=== PATIENT | female | born 1955 | race Caucasian/White ===

== ENCOUNTER 2019-05-14 17:52 | Emergency (ER) | payer OTHER ==
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
[2019-05-14] MEDS ORDERED: KETOROLAC 30 MG/ML INJ ONE (19:25)
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
[2019-05-14 21:45] VITALS: BP 112/59; TEMP 98.5; O2SAT 98
== END 2019-05-14 20:23 | disposition home or self-care (01) ==
LOC: ER 17:52
DX: M54.12 Radiculopathy, cervical region (principal); V43.52XA Car driver injured in collision with other type car in traffic accident, initial encounter; Z88.0 Allergy status to penicillin
CPT/HCPCS: 71045; 72125; 96372; 99283

== ENCOUNTER 2020-12-13 08:26 | Observation (INO) | payer OTHER ==
[2020-12-13 09:14] LABS: Basophils % 0.7 % (0-1.3); Hematocrit 38.1 % (36.0-45.0); Lymphocytes % 28.4 % (15.3-44.8); RBC Red Blood Cell Count 4.29 M/uL (3.86-4.86)
[2020-12-13 09:23] LABS: Albumin 4.1 g/dL (3.4-5.0); Bilirubin Direct 0.1 mg/dL (0-0.2); Bilirubin Total 0.5 mg/dL (0.2-1.0)
[2020-12-13 09:26] LABS: Potassium 2.9 mmol/L (3.5-5.1)
--- NOTE | 2020-12-13 09:37 | RAD REPORT ---
EXAM DESCRIPTION: CT - Stone Protocol - 12/13/2020 9:25 am COMPARISON: None. TECHNIQUE: Axial 5 mm thick images were obtained without oral or IV contrast. The [id number] span s the entirety of the system partially obscuring uppermost abdomen and lung bases. All CT scans are performed using dose optimization technique as appropriate and may include automated exposure control or mA/KV adjustment according to patient size. FINDINGS: 3 millimeter stone in the lower pole the right kidney. No ureteral calculi. No hydronephro sis. No suspicious renal masses. Isodense masses and pyelonephritis are not excluded on a stone ela col CT scan. No urinary bladder suspicious finding. Imaged portions of the liver and spleen show no suspicious findings on non-contrast imaging. No gallb ladder, biliary tree or pancreatic abnormality identified. No significant adrenal finding. No suspicious bowel findings. No hernia, mass or bulky lymphadenopathy noted. No significant bony abnormality. IMPRESSION: No acute findings within the abdomen or pelvis. Nonobstructing stone in the right kidney .
[2020-12-13] MEDS ORDERED: MORPHINE 4 MG/ML SYR ONE (09:53)
[2020-12-13] MEDS ORDERED: ONDANSETRON 4 MG/2 ML VIAL ONE (09:54)
[2020-12-13] MEDS ORDERED: KCL 20 MEQ/100 mL IVPB 20 MEQ/100 ML BAG IV ONE (09:54)
[2020-12-13] MEDS ORDERED: NA CHLORIDE 0.9% 500 ML ONE (09:54)
[2020-12-13] MEDS ORDERED: METHOCARBAMOL 1,000 MG/10 ML VIAL IV ONE (11:34)
[2020-12-13] MEDS ORDERED: NA CHLORIDE 0.9% 100 ML ONE (11:34)
[2020-12-13] MEDS ORDERED: KETOROLAC 30 MG/ML INJ ONE (11:34)
[2020-12-13] MEDS ORDERED: METHYLPREDNISOLONE 125 MG INJ ONE (13:44)
[2020-12-13 14:26] LABS: Urine Blood Negative (Negative); Urine Glucose Negative (Negative); Urine Protein Negative (Negative); Urine Specific Gravity 1.015 (1.005-1.030)
--- NOTE | 2020-12-13 15:11 | RAD REPORT ---
EXAM DESCRIPTION: MRI - Thoracic Spine Wo Contr - 12/13/2020 2:49 pm CLINICAL HISTORY: Left radiculopathy COMPARISON: None. TECHNIQUE: Sagittal T1 weighted, T2 weighted and T2 STIR weighted sequences were obtained. Axial T2 weighted images were obtained through each disc level. FINDINGS: Mild spondylosis involves the thoracic spine mainly consisting of several small bulging di scs. No central spinal stenosis. The neural foramina appear patent. Spinal cord is normal caliber and signal. No significant abnormal signal within the bones IMPRESSION: Mild spondylosis involves the thoracic spine
--- NOTE | 2020-12-13 15:19 | RAD REPORT ---
EXAM DESCRIPTION: MRI - Lumbar Spine Wo Con - 12/13/2020 2:49 pm CLINICAL HISTORY: Left radiculopathy COMPARISON: None. TECHNIQUE: Sagittal T1, T2 and STIR weighted sequences were obtained. Axial T1 and T2 sequences were obtained through the lumbar disc levels. FINDINGS: Mild spondylosis L1-2 Small annular fissure L2-3 with mild disc bulge. Mild ligamentum flavum and facet hypertrophy L3-4. Mild narrowing left neural foramina Slight anterior subluxation L4 on L5. Ligamentum flavum and facet hypertrophy. Moderate right lateral disc herniation narrows the right neural foramina. The right and left lateral aspects of the thecal sac or mildly compressed. Thecal sac measures 7.5 millimeters. Facet hypertrophy L5-S1 results in moderate narrowing of the right neural foramina. No significant abnormal signal within the bones IMPRESSION: Moderate right lateral disc herniation L4-5. Spondylosis L4-5 results in mild to moderate central spinal stenosis
--- OUTSIDE RECORDS SUMMARY | 2020-12-13 15:25 | XMS REPORT | Continuity of Care Document ---
:1955 Author Organization [facility] t Address [address] [place] [address] Care Team Providers Name Role Phone Asked, Pcp Primary Care Physician Unavailable Only, Test Attending Clinician Unavailable Wilton Saucedo MD Attending Clinician Doctor Unassigned, Name Attending Clinician Unavailable Green CREDIT RELATIONSHIP MANAGER Attending Clinician Lab, Fam Pob I Attending Clinician Unavailable Wilton Saucedo MD Admitting Clinician Problems Condition Condition Condition Status Onset Resolution Last Treating Co mments Source Name Details Category Date Date Treatment Clinician Date Cervical Cervical Disease Active [place] radiculopa radiculopa 12-29 Me thodi thy thy 00:00: st 00 Allergies, Adverse Reactions, Alerts Allergy Allergy Status Severity Reaction(s) Onset Inactive Treating Comm ents Source Name Type Date Date Clinician Doxycycl Propensi Active Nausea [place] ine ty to 12-25 and [facility] adverse 00:00: diarrhea st reaction 00 s to drug Penicill Propensi Active Hives, Rash 2015- [place] ty to 02-10 Methodi adverse 00:00: st reaction 00 s to drug Social History Social Habit Start Date Stop Date Quantity Comments Source Tobacco use and 2018-12-31 2018-12-31 Never used [facility] ethodist exposure 00:00:00 00:00:00 Alcohol intake 2018-12-31 2018-12-31 Current drinker [place] [facility] 00:00:00 00:00:00 of alcohol (finding) Sex [birth year] Lucien Rosenberg ethodist 00:00:00 00:00:00 Smoking Status Start Date Stop Date Source Never smoker Lucien Strongis t Medications Ordered Filled Start Stop Current Ordering Indication Dosage Frequency Signature Comments Components Source Medication Medication Date Date Medication? Clinician (SIG) Name Name zolpidem 2019- Yes 5mg QD Take 5 mg [place] (AMBIEN) 5 7-24 by mouth Metho di MG tablet 15:22: nightly. st 41 levothyroxi 2018- Yes 100ug QD Take 100 [place] ne 7-24 mcg by Method[facility] (SYNTHROID, 15:22: mouth st LEVOXYL) 41 every 100 mcg morning. tablet albuterol Yes 2{puff} Inhale 2 H [place] (PROAIR 7-24 puffs as Methodi HFA,PROVENT 15:22: needed for st [place] 41 wheezing. HFA,VENTOLI N HFA) 90 mcg/actuati on inhaler valACYclovi Yes 500mg QD Take 500 [place] (VALTREX) 7-24 mg by Method[facility] 500 MG 15:22: mouth st tablet 41 nightly. sertraline Yes 50mg QD Take 50 mg H j[place] (ZOLOFT) 50 4-10 by mouth Meth scott MG tablet 00:00: every st 00 morning. atorvastati Yes 40mg QD Take 40 mg [place] n (LIPITOR) 3-18 by mouth Meth scott 40 MG 00:00: every st tablet 00 morning. triamterene Yes 1{tbl} QD Take 1 [place] -hydrochlor 7-23 tablet by Met ese dennison 00:00: mouth st (MAXZIDE-25 00 every ) 37.5-25 morning. mg per tablet Procedures This patient has no known procedures. Plan of Care Planned Activity Planned Date Details Comments Source Future Scheduled 2021-01-07 INFLUENZA VACCINE [facility]irto n [facility] Test 00:00:00 [code = INFLUENZA VACCINE] Future Scheduled 2003 BREAST CANCER Lucien Collazo [facility] Test 00:00:00 SCREENING [code = BREAST CANCER SCREENING] Future Scheduled 2003 COLONOSCOPY SCREENING [place] [facility] Test 00:00:00 [code = COLONOSCOPY SCREENING] Future Scheduled 2003 SHINGLES VACCINES (#1) [place] [facility] Test 00:00:00 [code = SHINGLES VACCINES (#1)] Future Scheduled 1971 Hepatitis C screening Humza miller [facility] Test 00:00:00 (procedure) [code = 180469057] Future Scheduled 1965 COVID-19 VACCINE (1) Bobbi marie [facility] Test 00:00:00 [code = COVID-19 VACCINE (1)] Future Scheduled 1959 65+ PNEUMOCOCCAL [facility] Test 00:00:00 VACCINE (1 of 2 - PPSV23) [code = 65+ PNEUMOCOCCAL VACCINE (1 of 2 - PPSV23)] Encounters Start End Encounter Admission Attending Care Care Encounter Source Date/Time Date/Time Type Type Clinicians Facility Department ID 2020-06-27 2020-06-27 Telephone Only, [facility] BETY [id number] 00:00:00 00:00:00 Test GONZALES [id number] [id number] 2020-06-07 2020-06-07 [place] [id number] 07:05:00 08:45:00 Encounter Tamara morris [id number] [place] [id number] [facility] [id number] [place] 071 2020-06-06 2020-06-06 Laboratory Only, [address]840.114 7 [id number] 12:39:17 12:54:17 Only Test Jose Antonio [id number] [place] [id number] [place] [id number] 2020-06-06 2020-06-06 Orders Doctor BETY [id number] 00:00:00 00:00:00 Only Unassigned, GONZALES [id number] [facility] [id number] [id number] 2020-01-17 2020-01-17 [id number] 00:00:00 00:00:00 [facility] [id number] Jose Antonio [id number] Professio [id number] nal [address] 2020-01-16 2020-01-16 Laboratory Lab, Adc [facility] [id number] 12:54:34 13:14:34 Only Fam [facility] [id number] [place] 4.2.7.2.686 Vicki [id number] nal [address] 2020-01-16 2020-01-16 Letter Doctor BETY [id number] 00:00:00 00:00:00 (Out) Unassigned, GONZALES [id number] [facility] [place] [facility] [id number] [id number] Results This patient has no known results.
--- NOTE | 2020-12-13 15:58 | EDPHYS ---
Physician Documentation [facility] Name: Isabelle Pike Age: 65 yrs Sex: Female : 1955 Arrival Date: 12/13/2020 Time: 08:29 Bed 8 Private MD: Pj Abernathy ED Physician Bernardino Alvarez HPI: 12/13 09:44 This 65 yrs old Female presents to ER via Ambulatory with complaints of kdr Abdominal Pain. 09:44 The patient complains of pain in the left mid back. The pain radiates to the left low kdr back and left mid back. Onset: The symptoms/episode began/occurred yesterday. Modifying factors: The symptoms are alleviated by nothing. the symptoms are aggravated by nothing. Severity of pain: At its worst the pain was mild in the emergency department the pain is unchanged. The patient has not recently seen a physician. Historical: - Allergies: 08:34 PENICILLINS; ll1 - PMHx: 08:34 Hypothyroidism; Hypertensive disorder; ll1 - PSHx: 08:34 rotator cuff, back fusion, hernia repair; ll1 - Immunization history:: Flu vaccine is up to date. - Social history:: Smoking status: Patient denies any tobacco usage or history of. ROS: 09:44 Constitutional: Negative for fever, chills, and weight loss, Eyes: Negative for injury, kdr pain, redness, and discharge, Neck: Negative for injury, pain, and swelling, Cardiovascular: Negative for chest pain, palpitations, and edema, Respiratory: Negative for shortness of breath, cough, wheezing, and pleuritic chest pain, Back: Negative for injury and pain, : Negative for injury, bleeding, discharge, and swelling, Skin: Negative for injury, rash, and discoloration, Neuro: Negative for headache, weakness, numbness, tingling, and seizure activity. Psych: Negative for depression, anxiety, suicide ideation, homicidal ideation, and hallucinations, Allergy/Immunology: Negative for hives, rash, and allergies, Endocrine: Negative for neck swelling, polydipsia, polyuria, polyphagia, and marked weight changes, Hematologic/Lymphatic: Negative for swollen nodes, abnormal bleeding, and unusual bruising. 09:44 Abdomen/GI: Positive for abdominal pain, nausea, Negative for diarrhea, constipation, abdominal cramps, black/tarry stool, rectal pain, rectal bleeding, bowel incontinence. Exam: 09:44 Constitutional: This is a well developed, well nourished patient who is awake, alert, kdr and in no acute distress. Head/Face: Normocephalic, atraumatic. Eyes: Pupils equal round and reactive to light, extra-ocular motions intact. Lids and lashes normal. Conjunctiva and sclera are non-icteric and not injected. Cornea within normal limits. Periorbital areas with no swelling, redness, or edema. Neck: Trachea midline, no thyromegaly or masses palpated, and no cervical lymphadenopathy. Supple, full range of motion without nuchal rigidity, or vertebral point tenderness. No Meningismus. Chest/axilla: Normal chest wall appearance and motion. Nontender with no deformity. No lesions are appreciated. Cardiovascular: Regular rate and rhythm with a normal S1 and S2. No gallops, murmurs, or rubs. Normal PMI, no JVD. No pulse deficits. Respiratory: Lungs have equal breath sounds bilaterally, clear to auscultation and percussion. No rales, rhonchi or wheezes noted. No increased work of breathing, no retractions or nasal flaring. Back: No spinal tenderness. No costovertebral tenderness. Full range of motion. Skin: Warm, dry with normal turgor. Normal color with no rashes, no lesions, and no evidence of cellulitis. MS/ Extremity: Pulses equal, no cyanosis. Neurovascular intact. Full, normal range of motion. Neuro: Awake and alert, GCS 15, oriented to person, place, time, and situation. Cranial nerves II-XII grossly intact. Motor strength 5/5 in all extremities. Sensory grossly intact. Cerebellar exam normal. Normal gait. Psych: Awake, alert, with orientation to person, place and time. Behavior, mood, and affect are within normal limits. 09:44 Abdomen/GI: Inspection: abdomen appears normal, Bowel sounds: normal, Palpation: soft, mild abdominal tenderness, in the posterior aspect of left lateral abdomen and anterior aspect of left lateral abdomen. Vital Signs: 08:32 BP 181 / 96; Pulse 86; Resp 17; Temp 98.6; Pulse Ox 98% ; Weight 53.52 kg; Height 4 ft. ll1 11 in. (149.86 cm); Pain 10/10; 11:59 BP 156 / 79; Pulse 76; Resp 17 S; Pulse Ox 96% on R/A; jd3 13:20 BP 134 / 77; Pulse 75; Resp 17 S; Pulse Ox 95% on R/A; jd3 17:19 BP 135 / 78; Pulse 76; Resp 17 S; Pulse Ox 96% on R/A; jd3 08:32 Body Mass Index 23.83 (53.52 kg, 149.86 cm) ll1 MDM: 09:44 Data reviewed: vital signs, nurses notes, lab test result(s), radiologic studies. kdr Counseling: I had a detailed discussion with the patient and/or guardian regarding: the historical points, exam findings, and any diagnostic results supporting the discharge/admit diagnosis, lab results, radiology results. 13:59 ED course: Despite medications given, the patient is still in mild to moderate pain. kdr She does not appear to be in significant pain but rates her pain as a 5. She was at a 10 on arrival. 15:57 Patient medically screened. kdr 12/13 08:43 Order name: Basic Metabolic Panel; Complete Time: 10:06 kdr 12/13 08:43 Order name: CBC with Diff; Complete Time: 10:06 kdr 12/13 08:43 Order name: Hepatic Function; Complete Time: 10:06 kdr 12/13 08:43 Order name: Lipase; Complete Time: 10:06 kdr 12/13 14:26 Order name: Urine Dipstick-Ancillary; Complete Time: 15:42 EDMS 12/13 17:18 Order name: C-Reactive Protein EDMS 12/13 09:04 Order name: CT Stone Protocol; Complete Time: 10:06 kdr 12/13 14:08 Order name: Lumbar Spine Wo Con; Complete Time: 15:42 EDMS 12/13 14:08 Order name: Thoracic Spine Wo Contr; Complete Time: 15:42 EDMS 12/13 17:18 Order name: Sedimentation Rate, [place] EDMS 12/13 08:43 Order name: IV Saline Lock; Complete Time: 08:50 kdr 12/13 08:43 Order name: Labs collected and sent; Complete Time: 08:50 kdr 12/13 11:06 Order name: Urine Dipstick-Ancillary (obtain specimen); Complete Time: 14:28 kdr Administered Medications: 09:41 Drug: Zofran (Ondansetron) 4 mg Route: IVP; Site: left antecubital; jd3 10:40 Follow up: Response: No adverse reaction jd3 09:41 Drug: NS 0.9% 500 ml Route: IV; Rate: bolus; Site: left antecubital; jd3 10:40 Follow up: Response: No adverse reaction; IV Status: Completed infusion; IV Intake: jd3 500ml 09:41 Drug: morphine 4 mg Route: IVP; Site: left antecubital; jd3 10:40 Follow up: Response: No adverse reaction; RASS: Alert and Calm (0) jd3 09:41 Drug: Potassium Chloride 20 mEq Route: IV; Rate: calculated rate; Site: left [facility] antecubital; 11:40 Follow up: Response: No adverse reaction; IV Status: Completed infusion jd3 11:27 Drug: Robaxin (methocarbamol) 1 grams Route: IVPB; Infused Over: 1 hrs; Site: left [facility] antecubital; 12:20 Follow up: Response: No adverse reaction; IV Status: Completed infusion jd3 11:27 Drug: Ketorolac 15 mg Route: IVP; Site: left antecubital; jd3 12:20 Follow up: Response: No adverse reaction jd3 13:31 Drug: SOLU-Medrol (methylPrednisoLONE) 125 mg Route: IVP; Site: left antecubital; jd3 14:30 Follow up: Response: No adverse reaction jd3 Disposition Summary: 12/13/20 15:57 Hospitalization Ordered Hospitalization Status: Observation kdr Provider: Chito Montanze Location: Telemetry/MedSurg (observation) kdr Condition: Fair kdr Problem: new kdr Symptoms: are unchanged kdr Bed/Room Type: Standard kdr Room Assignment: 223(12/13/20 18:22) eb Diagnosis - Left flank pain kdr Forms: - Medication Reconciliation Form kdr - SBAR form kdr Signatures: Dispatcher [employer] Danielle Flores RN RN dw Rittger, Kevin, MD MD kdr Davies, Jonathon, RN RN jKrystin Alvarez Lynsay, RN RN ll1 Corrections: (The following items were deleted from the chart) 17:35 15:57 kdr dw 18:22 17:35 230 dw eb
--- NOTE | 2020-12-13 15:58 | ER ---
Nurse's Notes [facility] Name: Isabelle Pike Age: 65 yrs Sex: Female : 1955 Arrival Date: 12/13/2020 Time: 08:29 Bed 8 Private MD: Pj Abernathy Diagnosis: Left flank pain Presentation: 12/13 08:32 Chief complaint: Patient states: L flank pain with nausea for 2 days. No fever or ll1 dysuria. Coronavirus screen: Client denies travel out of the [place] in the last 14 days. At this time, the client does not indicate any symptoms associated with coronavirus-19. Ebola Screen: Patient denies travel to an Ebola-affected area in the 21 days before illness onset. Initial Sepsis Screen: Does the patient meet any 2 criteria? No. Patient's initial sepsis screen is negative. Does the patient have a suspected source of infection? Yes: Other: L flank pain. Risk Assessment: Do you want to hurt yourself or someone else? Patient reports no desire to harm self or others. Onset of symptoms was December 12, 2020. 08:32 Method Of Arrival: Ambulatory ll1 08:32 Acuity: FRANSISCO 3 ll1 Historical: - Allergies: 08:34 PENICILLINS; ll1 - PMHx: 08:34 Hypothyroidism; Hypertensive disorder; ll1 - PSHx: 08:34 rotator cuff, back fusion, hernia repair; ll1 - Immunization history:: Flu vaccine is up to date. - Social history:: Smoking status: Patient denies any tobacco usage or history of. Screenin:53 Abuse screen: Denies threats or abuse. Nutritional screening: No deficits noted. jd3 Tuberculosis screening: No symptoms or risk factors identified. Fall Risk Ambulatory Aid- None/Bed Rest/Nurse Assist (0 pts). Gait- Normal/Bed Rest/Wheelchair (0 pts) Mental Status- Oriented to own ability (0 pts). Total Villa Fall Scale indicates No Risk (0-24 pts). Assessment: 09:00 General: Appears in no apparent distress. comfortable, Behavior is calm, cooperative, jd3 appropriate for age. Pain: Complains of pain in left lower quadrant Quality of pain is described as burning. Neuro: Level of Consciousness is awake, alert, obeys commands, Oriented to person, place, time, situation. Cardiovascular: Denies chest pain, Capillary refill < 3 seconds Patient's skin is warm and dry. Respiratory: Airway is patent Respiratory effort is even, unlabored, Respiratory pattern is regular, symmetrical, Denies cough, shortness of breath. GI: Abdomen is round non-distended, Abd is soft X 4 quads Abdomen is tender to palpation in left lower quadrant Reports lower abdominal pain, nausea. : No signs and/or symptoms were reported regarding the genitourinary system. EENT: No signs and/or symptoms were reported regarding the EENT system. Derm: Skin is intact, Skin is dry, Skin is normal, Skin temperature is warm. Musculoskeletal: Circulation, motion, and sensation intact. Range of motion: intact in all extremities. 09:50 Reassessment: No changes from previously documented assessment. Patient and/or family jd3 updated on plan of care and expected duration. Pain level reassessed. Patient is alert, oriented x 3, equal unlabored respirations, skin warm/dry/pink. 10:50 Reassessment: Patient appears in no apparent distress at this time. Patient and/or jd3 family updated on plan of care and expected duration. Pain level reassessed. Patient is alert, oriented x 3, equal unlabored respirations, skin warm/dry/pink. 11:59 Reassessment: Patient appears in no apparent distress at this time. No changes from jd3 previously documented assessment. Patient and/or family updated on plan of care and expected duration. Pain level reassessed. Patient is alert, oriented x 3, equal unlabored respirations, skin warm/dry/pink. 13:20 Reassessment: Patient appears in no apparent distress at this time. Patient and/or jd3 family updated on plan of care and expected duration. Pain level reassessed. Patient is alert, oriented x 3, equal unlabored respirations, skin warm/dry/pink. 15:06 Reassessment: Patient appears in no apparent distress at this time. Patient and/or jd3 family updated on plan of care and expected duration. Pain level reassessed. Patient is alert, oriented x 3, equal unlabored respirations, skin warm/dry/pink. awaiting MRI results. 16:15 Reassessment: Patient appears in no apparent distress at this time. Patient and/or jd3 family updated on plan of care and expected duration. Pain level reassessed. Patient is alert, oriented x 3, equal unlabored respirations, skin warm/dry/pink. 17:19 Reassessment: Patient appears in no apparent distress at this time. Patient and/or jd3 family updated on plan of care and expected duration. Pain level reassessed. Patient is alert, oriented x 3, equal unlabored respirations, skin warm/dry/pink. awaiting admission. 18:19 Reassessment: Patient appears in no apparent distress at this time. Patient and/or jd3 family updated on plan of care and expected duration. Pain level reassessed. Patient is alert, oriented x 3, equal unlabored respirations, skin warm/dry/pink. report given to Agata GARCIA. Vital Signs: 08:32 BP 181 / 96; Pulse 86; Resp 17; Temp 98.6; Pulse Ox 98% ; Weight 53.52 kg; Height 4 ft. ll1 11 in. (149.86 cm); Pain 10/10; 11:59 BP 156 / 79; Pulse 76; Resp 17 S; Pulse Ox 96% on R/A; jd3 13:20 BP 134 / 77; Pulse 75; Resp 17 S; Pulse Ox 95% on R/A; jd3 17:19 BP 135 / 78; Pulse 76; Resp 17 S; Pulse Ox 96% on R/A; jd3 08:32 Body Mass Index 23.83 (53.52 kg, 149.86 cm) ll1 ED Course: 08:29 Patient arrived in ED. mr 08:29 Pj Abernathy MD is Private Physician. mr 08:30 Bernardino Alvarez MD is Attending Physician. kdr 08:32 Arm band placed on Patient placed in an exam room, on a stretcher. ll1 08:34 Triage completed. ll1 08:49 Amado Solano RN is Primary Nurse. jd3 08:51 Inserted saline lock: 20 gauge in left antecubital area, using aseptic technique. Blood mt collected. 09:25 CT Stone Protocol In Process Unspecified. EDMS 10:53 Patient has correct armband on for positive identification. Placed in gown. Bed in low jd3 position. Call light in reach. Side rails up X 1. Pulse ox on. NIBP on. 14:49 Thoracic Spine Wo Contr In Process Unspecified. EDMS 14:49 Lumbar Spine Wo Con In Process Unspecified. EDMS 15:57 Chito Montanez MD is Hospitalizing Provider. kdr 18:20 No provider procedures requiring assistance completed. Patient admitted, IV remains in jd3 place. Administered Medications: 09:41 Drug: Zofran (Ondansetron) 4 mg Route: IVP; Site: left antecubital; jd3 10:40 Follow up: Response: No adverse reaction jd3 09:41 Drug: NS 0.9% 500 ml Route: IV; Rate: bolus; Site: left antecubital; jd3 10:40 Follow up: Response: No adverse reaction; IV Status: Completed infusion; IV Intake: jd3 500ml 09:41 Drug: morphine 4 mg Route: IVP; Site: left antecubital; jd3 10:40 Follow up: Response: No adverse reaction; RASS: Alert and Calm (0) jd3 09:41 Drug: Potassium Chloride 20 mEq Route: IV; Rate: calculated rate; Site: left [facility] antecubital; 11:40 Follow up: Response: No adverse reaction; IV Status: Completed infusion jd3 11:27 Drug: Robaxin (methocarbamol) 1 grams Route: IVPB; Infused Over: 1 hrs; Site: left [facility] antecubital; 12:20 Follow up: Response: No adverse reaction; IV Status: Completed infusion jd3 11:27 Drug: Ketorolac 15 mg Route: IVP; Site: left antecubital; jd3 12:20 Follow up: Response: No adverse reaction jd3 13:31 Drug: SOLU-Medrol (methylPrednisoLONE) 125 mg Route: IVP; Site: left antecubital; jd3 14:30 Follow up: Response: No adverse reaction jd3 Intake: 10:40 IV: 500ml; Total: 500ml. jd3 Outcome: 15:57 Decision to Hospitalize by Provider. kdr 18:21 Admitted to Med/surg accompanied by tech, via wheelchair, room 223, with chart, Report jd3 called to Agata GARCIA 18:21 Condition: stable 18:21 Instructed on the need for admit, Demonstrated understanding of instructions. 18:38 Patient left the ED. jd3 Signatures: Dispatcher [employer] EDMO Bernardino Alvarez MD MD kdr Rivera, Debbie mr Ralf, Amado James mt, RN RN Kendra Trimble, RN RN ll1
--- NOTE | 2020-12-13 17:24 | P.HP ---
Certification for Inpatient Patient admitted to: Observation With expected LOS: <2 Midnights Practitioner: I am a practitioner with admitting privileges, knowledge of patient current condition, hospital course, and medical plan of care. Services: Services provided to patient in accordance with Admission requirements found in Title 42 Section 412.3 of the Code of Federal Regulations Patient History Date of Service: 12/13/20 Reason for admission: intractable L back/flank pain History of Present Illness: 65yo F, PMH: HTN, hypothyroidism, presents to ED due to ~2 days of constant burning L back pain that is now involving her L flank. 12/16 pain. Not associated with anything else. No pain like this before. Nothing aggravates or alleviates the pain. Has tried Tyelonol #3, muscle relaxers, voltaren cream, with no effect at all. She report no new numbness/tingling, no nausea/vomiting, no recent illness, no change in medications, no abdominal pain, no change in bowel/urinary habits. No new rashes/lesions, no h/o zoster, did not received zostavax / zoster vaccine. Workup in ED notable for hypokalemia, CT abd/pelvis, and MRI thoracic/lumbar negative for acute findings to explain her pain. MRI was notable for disc herniation and some foraminal narrowing on right side, of which patient is asymptomatic. Patient had minimal to no improvement with several pain medications in the ED. ED physician has requested admission for further evaluation and management of her pain. Allergies Penicillins Adverse Reaction (Mild, Verified 12/04/11 16:09) redness Home Medications: Atorvastatin Calcium [Lipitor*] 20 mg PO BEDTIME 03/23/13 Levothyroxine [Synthroid*] 112 mcg PO [id number] 03/23/13 Sertraline [Zoloft*] 50 mg PO DAILY 03/23/13 Zolpidem Tartrate [Ambien*] 10 mg PO BEDTIME 03/23/13 hydroCHLOROthiazide [Hydrochlorothiazide*] 03/23/13 Calcium Polycarbophil [Fiber] 625 mg PO BID #0 tablet 03/25/13 levoFLOXacin [Levaquin*] 750 mg PO DAILY #7 tab 03/25/13 metroNIDAZOLE [Flagyl*] 500 mg PO Q8H #21 tablet 03/25/13 - Past Medical/Surgical History Diabetic: No -: mitral vial prolapse -: htn -: diverticulitis -: c-sections -: right buninon sx -: hernia repair -: right rotator cuff - Family History Mother -: Cancer Father -: Cancer - Social History Smoking Status: Never smoker Alcohol use: Yes CD- Drugs: No Caffeine use: Yes Place of Residence: Home Review of Systems 10-point ROS is otherwise unremarkable Physical Examination - Physical Exam General: Alert, Oriented x3, Mild distress HEENT: EOMI, Sclerae nonicteric Neck: No LAD Respiratory: Clear to auscultation bilaterally, Normal air movement Cardiovascular: No edema, Regular rate/rhythm, Normal S1 S2 Capillary refill: <2 Seconds Gastrointestinal: Soft and benign, Non-distended, No tenderness Musculoskeletal: No erythema, No tenderness Integumentary: No rashes, No significant lesion, Other (pain noted along dermatomal pattern in left lumbar region) Neurological: Normal speech, Normal strength at 5/5 x4 extr, Sensation intact (in bilateral lower extremities), Cranial nerves 3-12 intact, Normal affect - Studies Laboratory Data (last 24 hrs) 12/13/20 08:49: WBC 6.90, Hgb 13.4, Hct 38.1, Plt Count 338 12/13/20 08:49: Sodium 139, Potassium 2.9 L*, BUN 16, Creatinine 0.75, Glucose 137 H, Total Bilirubin 0.5, AST 19, ALT 35, Alkaline Phosphatase 126 H, Lipase 71 L Assessment and Plan - Advance Directives Does patient have a Living Will: No Does patient have a Durable POA for Healthcare: Yes Physician Review Additional Text: Problem List L back/flank pain HTN Anxiety/depression h/o C4-C5 fusion Hypothyroidism -MRI and CT negative for acute process to explain symptoms, has incidental findings of R sided stenosis/herniations -pain seems to be following dermatomal pattern, concern for acute neuritis / prodrome for zoster -will treat with valacyclovir and prednisone -obtain home medications, restart as appropriate -replete potassium, recheck in AM VTE: lovenox Code: full Dispo: anticipate dc home in 24-48hrs Time Spent Managing Pts Care (In Minutes): 60
[2020-12-13] MEDS ORDERED: ACETAMINOPHEN 500 MG TAB PO PRN (18:40)
[2020-12-13 18:56] VITALS: BMI 23.8
[2020-12-13] MEDS: HYDROCODONE/APAP 7.5/325 MG TAB PO PRN (19:15)
[2020-12-13] MEDS: ENOXAPARIN 40 MG/0.4 ML SQ SCH (21:26)
[2020-12-13] MEDS: predniSONE 20 MG TAB PO SCH (21:27)
[2020-12-13] MEDS: VALACYCLOVIR 500 MG TAB PO SCH (21:28)
[2020-12-13] MEDS ORDERED: MORPHINE 2 MG/ML SYR IV PRN (22:30)
[2020-12-14 06:12] LABS: Absolute Lymphocytes (CBC) 1.2 K/uL (0.7-4.9); Basophils % 0.3 % (0-1.3); Hematocrit 37.1 % (36.0-45.0); Lymphocytes % 9.9 % (15.3-44.8); MPV 8.1 fL (7.6-11.3); RBC Red Blood Cell Count 4.13 M/uL (3.86-4.86)
[2020-12-14 06:35] LABS: Albumin 3.7 g/dL (3.4-5.0); Bilirubin Total 0.3 mg/dL (0.2-1.0); Potassium 3.3 mmol/L (3.5-5.1); Protein, Total 7.3 g/dL (6.4-8.2)
[2020-12-14 08:36] LABS: Blood Morphology Comment NOT SEEN (NOT SEEN); Platelet Estimate ADEQ
[2020-12-14] MEDS ORDERED: LIDOCAINE 4% PATCH TOP SCH (09:30)
[2020-12-14] MEDS: VALACYCLOVIR 500 MG TAB PO SCH ×2 (09:41→13:44)
[2020-12-14] MEDS: predniSONE 20 MG TAB PO SCH ×2 (09:41→13:44)
[2020-12-14] MEDS: ENOXAPARIN 40 MG/0.4 ML SQ SCH (09:42)
[2020-12-14] MEDS: HYDROCODONE/APAP 7.5/325 MG TAB PO PRN ×2 (09:42→13:45)
[2020-12-14] MEDS ORDERED: GABAPENTIN 300 MG CAP PO SCH ×2 (10:00)
[2020-12-14] MEDS ORDERED: POTASSIUM CL SA 10 MEQ TAB PO ONE (10:00)
[2020-12-14 10:10] VITALS: O2SAT 98
[2020-12-14 14:13] VITALS: BP 153/70; TEMP 97
--- NOTE | 2020-12-14 20:47 | P.DS ---
Admission Date: 12/13/20 Discharge Date: 12/14/20 Disposition: ROUTINE DISCHARGE Discharge Condition: FAIR Reason for Admission: intractable L back/flank pain Procedures: CT Abd (12/13): FINDINGS: 3 millimeter stone in the lower pole the right kidney. No ureteral calculi. No hydronephrosis. No suspicious renal masses. Isodense masses and pyelonephritis are not excluded on a stone protocol CT scan. No urinary bladder suspicious finding. Imaged portions of the liver and spleen show no suspicious findings on non- contrast imaging. No gallbladder, biliary tree or pancreatic abnormality identified. No significant adrenal finding. No suspicious bowel findings. No hernia, mass or bulky lymphadenopathy noted. No significant bony abnormality. IMPRESSION: No acute findings within the abdomen or pelvis. Nonobstructing st one in the right kidney. MRI Lumbar spine (12/13): FINDINGS: Mild spondylosis L1-2 Small annular fissure L2-3 with mild disc bulge. Mild ligamentum flavum and facet hypertrophy L3-4. Mild narrowing left neural foramina Slight anterior subluxation L4 on L5. Ligamentum flavum and facet hypertrophy. Moderate right lateral disc herniation narrows the right neural foramina. The right and left lateral aspects of the thecal sac or mildly compressed. Thecal sac measures 7.5 millimeters. Facet hypertrophy L5-S1 results in moderate narrowing of the right neural foramina. No significant abnormal signal within the bones IMPRESSION: Moderate right lateral disc herniation L4-5. Spondylosis L4-5 results in mild to moderate central spinal stenosis MRI Thoracic spine (12/13): FINDINGS: Mild spondylosis involves the thoracic spine mainly consisting of several small bulging discs. No central spinal stenosis. The neural foramina appear patent. Spinal cord is normal caliber and signal. No significant abnormal signal within the bones IMPRESSION: Mild spondylosis involves the thoracic spine Problem List L back/flank pain, suspected acute neuritis from early herpes zoster HTN Anxiety/depression h/o C4-C5 fusion Hypothyroidism Brief History of Present Illness: 65yo F, PMH: HTN, hypothyroidism, presents to ED due to ~2 days of constant burning L back pain that is now involving her L flank. 12/16 pain. Not associated with anything else. No pain like this before. Nothing aggravates or alleviates the pain. Has tried Tyelonol #3, muscle relaxers, voltaren cream, with no effect at all. She report no new numbness/tingling, no nausea/vomiting, no recent illness, no change in medications, no abdominal pain, no change in bowel/urinary habits. No new rashes/lesions, no h/o zoster, did not received zostavax / zoster vaccine. Workup in ED notable for hypokalemia, CT abd/pelvis, and MRI thoracic/lumbar negative for acute findings to explain her pain. MRI was notable for disc herniation and some foraminal narrowing on right side, of which patient is asymptomatic. Patient had minimal to no improvement with several pain medications in the ED. ED physician has requested admission for further evaluation and management of her pain. Hospital Course: History and exam along with imaging most consistent with acute neuritis from early herpes zoster as well as muscle spasms. Patient's burning pain followed dermatome for T10/T11. She did not have any vesicles/rash. On further discussion she reported her stating she was walking hunched over the last 1-2 weeks, which she reported was due to sciatica pain. This may have likely contrib uted to her muscle spasms. She was started on Valtrex and prednisone with minimal initial relief. She was given opioids with minimal relief as well, so this was discontinued and she noted some relief with gabapentin. She was discharged home with prescriptions for valtrex, prednisone taper, and gabapentin. She is to f/u with PCP in 3-5 days. Incidental MRI findings - pt reported no correlating signs/symptoms and did not have any physical exam findings to suggest clinical significance. Vital Signs/Physical Exam: Physical Exam General: Alert, Oriented x3, NAD Respiratory: Clear to auscultation bilaterally, Normal air movement Cardiovascular: No edema, Regular rate/rhythm, Normal S1 S2 Gastrointestinal: Soft and benign, Non-distended, No tenderness Musculoskeletal: tenderness to palpation along left latissimus dorsi Integumentary: No rash / vesicles, burning pain noted along T10/T11 dermatome - without tenderness Neurological: Normal speech, Normal strength at 5/5 x4 extr, Sensation intact in bilateral lower extremities Temp Pulse Resp BP Pulse Ox 97.0 F 84 17 153/70 H 95 12/14/20 12:00 12/14/20 12:00 12/14/20 13:45 12/14/20 12:12/14/20 13:45 Laboratory Data at Discharge: WBC 12.30 K/uL (4.3-10.9) H D 12/14/20 05:57 Hgb 12.5 g/dL (12.0-15.0) 12/14/20 05:57 Hct 37.1 % (36.0-45.0) 12/14/20 05:57 Plt Count 323 K/uL (152-406) 12/14/20 05:57 Sodium 138 mmol/L (136-145) 12/14/20 05:57 Potassium 3.3 mmol/L (3.5-5.1) L 12/14/20 05:57 BUN 15 mg/dL (7-18) 12/14/20 05:57 Creatinine 0.79 mg/dL (0.55-1.3) 12/14/20 05:57 Glucose 166 mg/dL (74-106) H 12/14/20 05:57 Total Bilirubin 0.3 mg/dL (0.2-1.0) 12/14/20 05:57 AST 12 U/L (15-37) L 12/14/20 05:57 ALT 29 U/L (12-78) 12/14/20 05:57 Alkaline Phosphatase 107 U/L (45-117) 12/14/20 05:57 Lipase 71 U/L (73-393) L 12/13/20 08:49 Home Medications: Atorvastatin Calcium [Lipitor*] 20 mg PO BEDTIME 03/23/13 Levothyroxine [Synthroid*] 112 mcg PO [id number] 03/23/13 Sertraline [Zoloft*] 50 mg PO DAILY 03/23/13 Zolpidem Tartrate [Ambien*] 10 mg PO BEDTIME 03/23/13 hydroCHLOROthiazide [Hydrochlorothiazide*] 03/23/13 Calcium Polycarbophil [Fiber] 625 mg PO BID #0 tablet 03/25/13 Gabapentin 300 mg PO BID 14 Days #28 capsule 12/14/20 Valacyclovir [Valtrex*] 1,000 mg PO TID 7 Days #42 tab 12/14/20 predniSONE [Prednisone*] 20 mg PO SEECOM 12 Days #24 tab 12/14/20 New Medications: Gabapentin 300 mg PO BID 14 Days #28 capsule predniSONE [Prednisone*] 20 mg PO SEECOM 12 Days #24 tab Valacyclovir [Valtrex*] 1,000 mg PO TID 7 Days #42 tab Physician Discharge Instructions: Your pain was evaluated by CT abdomen/pelvis, MRI of your thoracic and lumbar spine, and most likely to be due to acute neuritis from beginning of herpes zoster / shingles. You are discharged home with prescription for antiviral, steroids, and gabapentin. The pain should gradually continue to improve. Follow up with your PCP in 3-5 days. Medications may need to be increased or added if not having further improvement. Diet: AHA Activity: Ad omar Followup: Pj Abernathy MD [Primary Care Provider] - Time spent managing pt's care (in minutes): 45
== END 2020-12-14 15:27 | disposition home or self-care (01) ==
LOC: ER 08:26 → ERHOLD 17:12 → 2ND 18:21
PROVIDERS: ADMIT Hospitalist; ATTEND Hospitalist
DX: R10.9 Unspecified abdominal pain (principal); I10 Essential (primary) hypertension; F41.8 Other specified anxiety disorders; E03.9 Hypothyroidism, unspecified; Z98.1 Arthrodesis status; M54.9 Dorsalgia, unspecified; I34.1 Nonrheumatic mitral (valve) prolapse
CPT/HCPCS: 96365; 85025 ×2; 80048; 36415; 80076; 85652; 81003; 83690; 80053; 86140; 76377; 74176; 72146; 72148; 94760 ×2; 96375; 99285; 96366; J3480; J1650 ×2; J2270; J7040; J2930; J2405; J2800; G0378 ×3; J7512

== ENCOUNTER 2023-04-15 18:58 | Emergency (ER) | payer OTHER ==
--- OUTSIDE RECORDS SUMMARY | 2023-04-15 19:02 | XMS REPORT | Continuity of Care Document ---
:1955 Author Organization [facility] t Address [address] [facility] [address] [place] [id number] Care Team Providers Name Role Phone PCP, PATIENT DOES NOT HAVE A Primary Care Physician Unavaila TORRES Bragg Attending Clinician Unavailable Doctor Unassigned, [place] Attending Clinician Unavailable Only, Adc Test Attending Clinician Unavailable Torres Hall MD Attending Clinician Valarie Menon Attending Clinician Lab, Adc Fam Pob I Attending Clinician Unavailable Farnaz Cabral Attending Clinician TORRES HALL Admitting Clinician Unavailable Torres Hall MD Admitting Clinician Payers Payer Name Policy Type Policy Number Effective Date Expiration Date Garett macias MEDICARE PART A [id number] 2018 \\T\\ B 00:00:00 JOCELYNE RUY DONAHUE [id number] 2020 00:00:00 Problems This patient has no known problems. Allergies, Adverse Reactions, Alerts Allergy Allergy Status Severity Reaction(s) Onset Inactive Treating Comm ents Source Name Type Date Date Clinician Penicill Propensi Active Rash 2019-06 Univer s ins ty to 2-28 ity of adverse 00:00: [place] reaction 00 Medical s Branch Doxycycl Propensi Active Rash 2019-06 Univer s ine ty to 2-28 ity of adverse 00:00: [place] reaction 00 Medical s Branch Penicill Propensi Active Rash 2019-06 Univer s ins ty to 2-28 ity of adverse 00:00: [place] reaction 00 Medical s Branch DOXYCYCL DRUG Active High Rash 2019-06 Univers INE INGREDI 2-28 ity of 00:00: [place] 00 [facility] [place] PENICILL Drug Active Rash 2019-06 Univers INS Class 2-28 ity of 00:00: [place] [facility] [place] NO KNOWN Drug Active Univers ALLERGIE Class ity of S [facility] Social History Social Habit Start Date Stop Date Quantity Comments Source Sexual orientation Univer sity [facility] Exposure to Not sure [facility] SARS-CoV-2 (event) [facility] History of Social 2020-06-07 2020-06-07 Univers ity of function 00:00:00 00:00:00 [facility] Tobacco use and 2020-06-05 2020-06-05 Smokeless Universit y of exposure 00:00:00 00:00:00 tobacco [facility]-user [facility] At [birth year] Universit y of 00:00:00 00:00:00 [facility] Smoking Status Start Date Stop Date Source Unknown if ever smoked Universit y of [facility] Never smoked tobacco [facility] Medications Ordered Filled Start Stop Current Ordering Indication Dosage Frequency Signature Comments Components Source Medication Medication Date Date Medication? Clinician (SIG) Name Name atorvastati 2019-06 Yes atorvastat Univers n 40 mg 2-30 in 40 mg ity of tablet 14:45: tablet [address] fluticasone 2019-06 Yes Comments: U nivers propionate 2-30 | Patient ity of 50 14:45: Notes: USE [place] mcg/actuati 40 2 SPRAY(S) Me dical on nasal IN EACH Branch spray NOSTRIL ONCE DAILY levothyroxi 2019-06 Yes 100ug Take 100 U nivers ne 100 mcg 2-30 mcg by ity of tablet 14:45: mouth. [address] valACYclovi 2019-06 Yes 500mg Take 500 U nivers r 500 mg 2-30 mg by ity of tablet 14:45: mouth. [address] atorvastati 2019-06 Yes atorvastat Univers n 40 mg 2-30 in 40 mg ity of tablet 14:45: tablet [address] fluticasone 2019-06 Yes Comments: U nivers propionate 2-30 | Patient ity of 50 14:45: Notes: USE [place] mcg/actuati 40 2 SPRAY(S) Me dical on nasal IN EACH Branch spray NOSTRIL ONCE DAILY levothyroxi 2019-06 Yes 100ug Take 100 U nivers ne 100 mcg 2-30 mcg by ity of tablet 14:45: mouth. [address] valACYclovi 2019-06 Yes 500mg Take 500 U nivers r 500 mg 2-30 mg by ity of tablet 14:45: mouth. [address] simethicone 2019-06 Yes PRN, Univer s (GAS RELIEF 2-30 Starting ity of (SIMETHICON 13:50: Wed [place] E)) 40 00 06/07/20 Medical mg/0.6 mL at 0750, Branch drops Until Discontinu ed, Routine, Intra-op lactated 2019-06 No 1000mL at 42 Unive rs ringers IV 2-30 12-30 mL/hr, ity of infusion 13:30: 13:27 1,000 mL, Phuc as 1,000 mL 00 :00 IV Medical Infusion, Branch ONCE, 1 dose, Fri06/07/20 at 0730, Routine, DSU Pre-op valACYclovi 2019-06 Yes 500mg Take 500 U nivers r 500 mg 2-30 mg by ity of tablet 08:45: mouth. [address] atorvastati 2019-06 Yes atorvastat Univers n 40 mg 2-30 in 40 mg ity of tablet 08:45: tablet [address] fluticasone 2019-06 Yes Comments: U nivers propionate 2-30 | Patient ity of 50 08:45: Notes: USE [place] mcg/actuati 40 2 SPRAY(S) Me dical on nasal IN EACH Branch spray NOSTRIL ONCE DAILY levothyroxi 2019-06 Yes 100ug Take 100 U nivers ne 100 mcg 2-30 mcg by ity of tablet 08:45: mouth. [address] valACYclovi 2019-06 Yes 500mg Take 500 U nivers r 500 mg 2-30 mg by ity of tablet 08:45: mouth. [address] atorvastati 2019-06 Yes atorvastat Univers n 40 mg 2-30 in 40 mg ity of tablet 08:45: tablet [address] fluticasone 2019-06 Yes Comments: U nivers propionate 2-30 | Patient ity of 50 08:45: Notes: USE [place] mcg/actuati 40 2 SPRAY(S) Me dical on nasal IN EACH Branch spray NOSTRIL ONCE DAILY levothyroxi 2019-06 Yes 100ug Take 100 U nivers ne 100 mcg 2-30 mcg by ity of tablet 08:45: mouth. [address] atorvastati 2019- Yes atorvastat Univers n 40 mg 2-21 in 40 mg ity of tablet 19:19: tablet [address] fluticasone 2019-06 Yes Comments: U nivers propionate 2-21 | Patient ity of 50 19:19: Notes: USE [place] mcg/actuati 51 2 SPRAY(S) Me dical on nasal IN EACH Branch spray NOSTRIL ONCE DAILY levothyroxi 2019-06 Yes 100ug Take 100 U nivers ne 100 mcg 2-21 mcg by ity of tablet 19:19: mouth. [address] valACYclovi 2019-06 Yes 500mg Take 500 U nivers r 500 mg 2-21 mg by ity of tablet 19:19: mouth. [address] atorvastati 2019-06 Yes atorvastat Univers n 40 mg 2-21 in 40 mg ity of tablet 19:19: tablet [address] fluticasone 2019-06 Yes Comments: U nivers propionate 2-21 | Patient ity of 50 19:19: Notes: USE [place] mcg/actuati 51 2 SPRAY(S) Me dical on nasal IN EACH Branch spray NOSTRIL ONCE DAILY levothyroxi 2019-06 Yes 100ug Take 100 U nivers ne 100 mcg 2-21 mcg by ity of tablet 19:19: mouth. [address] valACYclovi 2019-06 Yes 500mg Take 500 U nivers r 500 mg 2-21 mg by ity of tablet 19:19: mouth. [address] levothyroxi 2019-0 Yes 100ug Take 100 U nivers ne 100 mcg 8-09 mcg by ity of tablet 18:03: mouth. [address] valACYclovi 2019-0 Yes 500mg Take 500 U nivers r 500 mg 8-09 mg by ity of tablet 18:03: mouth. [address] atorvastati Yes atorvastat Univers n 40 mg 8-09 in 40 mg ity of tablet 18:03: tablet [facility] fluticasone Yes Comments: U nivers propionate 8-09 | Patient ity of 50 18:03: Notes: USE [place] mcg/actuati 21 2 SPRAY(S) Me dical on nasal IN EACH Branch spray NOSTRIL ONCE DAILY levothyroxi Yes 100ug Take 100 U nivers ne 100 mcg 8-09 mcg by ity of tablet 18:03: mouth. [address] valACYclovi Yes 500mg Take 500 U nivers r 500 mg 8-09 mg by ity of tablet 18:03: mouth. [address] atorvastati Yes atorvastat Univers n 40 mg 8-09 in 40 mg ity of tablet 18:03: tablet [address] fluticasone Yes Comments: U nivers propionate 8-09 | Patient ity of 50 18:03: Notes: USE [place] mcg/actuati 21 2 SPRAY(S) Me dical on nasal IN EACH Branch spray NOSTRIL ONCE DAILY SERTraline Yes Take 1 Unive rs 50 mg 7-29 tablet by ity of tablet 00:00: mouth once [facility] zolpidem 10 Yes zolpidem Un chhaya mg tablet 7-29 10 mg ity of 00:00: tablet [facility] SERTraline Yes Take 1 Unive rs 50 mg 7-29 tablet by ity of tablet 00:00: mouth once [facility] SERTraline Yes Take 1 Unive rs 50 mg 7-29 tablet by ity of tablet 00:00: mouth once daily [facility] Branch zolpidem 10 Yes zolpidem Un chhaya mg tablet 7-29 10 mg ity of 00:00: tablet [facility] Branch zolpidem 10 Yes zolpidem Un chhaya mg tablet 7-29 10 mg ity of 00:00: tablet [facility] SERTraline Yes Take 1 Unive rs 50 mg 7-29 tablet by ity of tablet 00:00: mouth once daily [facility] zolpidem 10 Yes zolpidem Un chhaya mg tablet 7-29 10 mg ity of 00:00: tablet Medical Branch SERTraline 2020-0 Yes Take 1 Unive rs 50 mg 7-29 tablet by ity of tablet 00:00: mouth once [place] daily Medical Branch zolpidem 10 2019-0 Yes zolpidem Un chhaya mg tablet 7-29 10 mg ity of 00:00: tablet Medical Branch SERTraline 2020-0 Yes Take 1 Unive rs 50 mg 7-29 tablet by ity of tablet 00:00: mouth once [place] daily Medical Branch zolpidem 10 2019-0 Yes zolpidem Un chhaya mg tablet 7-29 10 mg ity of 00:00: tablet [place] [facility] SERTraline 2019-0 Yes Take 1 Unive rs 50 mg 7-29 tablet by ity of tablet 00:00: mouth once [place] daily Medical Branch zolpidem 10 2019-0 Yes zolpidem Un chhaya mg tablet 7-29 10 mg ity of 00:00: tablet [place] [facility] SERTraline 2019-0 Yes Take 1 Unive rs 50 mg 7-29 tablet by ity of tablet 00:00: mouth once [place] daily Medical Branch zolpidem 10 2019-0 Yes zolpidem Un chhaya mg tablet 7-29 10 mg ity of 00:00: tablet [place] [facility] hydroCHLORO 2020-0 Yes 25mg Take 25 mg Univers thiazide 25 5-29 by mouth ity of mg tablet 00:00: daily. [place] [facility] Branch hydroCHLORO 2020-0 Yes 25mg Take 25 mg Univers thiazide 25 5-29 by mouth ity of mg tablet 00:00: daily. [place] [facility] hydroCHLORO 2020-0 Yes 25mg Take 25 mg Univers thiazide 25 5-29 by mouth ity of mg tablet 00:00: daily. [place] [facility] hydroCHLORO 2020-0 Yes 25mg Take 25 mg Univers thiazide 25 5-29 by mouth ity of mg tablet 00:00: daily. [place] [facility] Branch hydroCHLORO 2020-0 Yes 25mg Take 25 mg Univers thiazide 25 5-29 by mouth ity of mg tablet 00:00: daily. [place] [facility] hydroCHLORO 2020-0 Yes 25mg Take 25 mg Univers thiazide 25 5-29 by mouth ity of mg tablet 00:00: daily. [place] [facility] hydroCHLORO 2020-0 Yes 25mg Take 25 mg Univers thiazide 25 5-29 by mouth ity of mg tablet 00:00: daily. [address] hydroCHLORO 2020-0 Yes 25mg Take 25 mg Univers thiazide 25 5-29 by mouth ity of mg tablet 00:00: daily. [address] Vital Signs Vital Name Observation Time Observation Value Comments Source Systolic blood 2020-06-07 14:30:00 128 mm[Hg] Univer sity of pressure [facility] Diastolic blood 2020-06-07 14:30:00 72 mm[Hg] Unive rsity of pressure [facility] Heart rate 2020-06-07 14:30:00 72 /min Universi ty of [facility] Body temperature 2020-06-07 14:30:00 36.61 [place] Univ ersity of [facility] Respiratory rate 2020-06-07 14:30:00 15 /min Univ ersity of [facility] Oxygen saturation in 2020-06-07 14:30:00 100 /min University of Arterial blood by Dress Code Pulse oximetry Branch Body height 2020-05-29 19:18:00 149.9 cm Universi ty of [place] [facility] [place] Body weight 2020-05-29 19:18:00 53.524 kg Universi ty of [place] [facility] [place] BMI 2020-05-29 19:18:00 23.82 kg/m2 Universi ty of [facility] Systolic blood 2020-06-07 14:30:00 128 mm[Hg] Univer sity of pressure [facility] Diastolic blood 2020-06-07 14:30:00 72 mm[Hg] Unive rsity of pressure [facility] Heart rate 2020-06-07 14:30:00 72 /min Universi ty of [facility] Body temperature 2020-06-07 14:30:00 36.61 [place] Univ ersity of [facility] Respiratory rate 2020-06-07 14:30:00 15 /min Univ ersity of [facility] Branch Oxygen saturation in 2020-06-07 14:30:00 100 /min University of Arterial blood by [place] GIVTED manuel Pulse oximetry Branch Body height 2020-05-29 19:18:00 149.9 cm Universi ty of [place] [facility] [place] Body weight 2020-05-29 19:18:00 53.524 kg Universi ty of [place] [facility] BMI 2020-05-29 19:18:00 23.82 kg/m2 Universi ty of [place] [facility] Procedures Procedure Date / Time Performing Clinician Source Performed REFERRAL- 2022-02-22 05:01:00 Doctor Unassigned, No [facility] REQUEST/RESPONSE [facility] COLONOSCOPY (ENDO) 2020-06-07 13:02:02 Pj Abernathy [facility] ASSIGNMENT OF BENEFITS 2020-06-06 18:35:32 Doctor Unassigned, No [facility] DSU PRE-OP 2020-04-19 06:01:00 Doctor Unassigned, No [facility] Encounters Start End Encounter Admission Attending Care Care Encounter Source Date/Time Date/Time Type Type Clinicians Facility Department ID 2021-04-07 Outpatient [facility] [place] [id number] [facility] 09:12:35 TORRES Morris [facility] 2022 2022 Patient Doctor BETY [id number] Univers 00:00:00 00:00:00 Secure Msg Unassigned, GONZALES 350.1.13.10 ity of [place] [facility] 4.2.7.2.686 Phuc as [id number] [address] 2022-02-22 2022-02-22 Orders Doctor BETY [id number] [id number] Univers 00:00:00 00:00:00 Only Unassigned, GONZALES 350.1.13.10 ity of [place] [facility] 4.2.7.2.686 Phuc as [id number] [facility] [address] [place] 2020-06-27 2020-06-27 Telephone Only, Jaren Strange2.840.114 [id number] 00:00:00 00:00:00 Test GONZALES 350.1.13.10 HOSPITAL 4.2.7.2.686 [id number] 2020-06-27 2020-06-27 Telephone Only, Jaren Strange2.840.114 [id number] Univers 00:00:00 00:00:00 Test GONZALES 350.1.13.10 it y of HOSPITAL 4.2.7.2.686 Phuc as [id number] [address] 2020-06-07 2020-06-07 [facility] 1.2.840.114 [id number] 07:05:00 08:45:00 Encounter Torres morriston 350.1.13.10 [place] 4.2.7.2.686 Surgical [id number] [place] [address] 2020-06-07 2020-06-07 [facility] 1.2.840.[id number] [facility] 07:05:00 08:45:00 Encounter Torres morris 350.1.13.10 ity of [place] 4.2.7.2.686 [place] [id number] [address] 2020-06-06 2020-06-06 Outpatient R [facility] [place] [id number] [facility] 13:00:00 13:00:00 TORRES Morris o f [facility] 2020-06-06 2020-06-06 Laboratory Only, [facility] 1.2.840.114 [id number] 12:39:17 12:54:17 Only Test Frederic 350.1.13.10 [place] 4.2.7.2.686 [place] [id number] 2020-06-06 2020-06-06 Laboratory Only, [facility] Test [facility] 1.2.840. [id number] [facility] 12:39:17 12:54:17 Only Torres Hall 350.1.1 3.10 ity of [place] 4[place]2.7.2.686 [place] [id number] [facility] 353 Branch 2020-06-06 2020-06-06 Orders Doctor ALBERT 1.2.840.114 [id number] Univers 00:00:00 00:00:00 Only Unassigned, GONZALES 350.1.13.10 ity of [place] [facility] 4.2.7.2.686 Phuc as [id number] [facility] 009 Branch 2020-06-06 2020-06-06 Orders Doctor ALBERT 1.2.840.114 [id number] 00:00:00 00:00:00 Only Unassigned, GONZALES 350.1.13.10 [place] [facility] 4.2.7.2.686 [id number] 2020-01-17 2020-01-17 Telephone Cristi, [facility] [id number] Univers 00:00:00 00:00:00 [facility] 350.1.13.10 it y of [place] 4.2.7.2.686 Phuc as Professio [phone] [address] Office [address] 2020-01-17 2020-01-17 Aaron Colin, [facility] [id number] 1957 00:00:00 00:00:00 [facility] 350.1.13.10 [place] 4.2.7.2.686 Professio [id number] [place] [address] [address] 2020-01-16 2020-01-16 Laboratory Lab, [facility] Fam Pob I [facility] 1.2. 840.[id number] [facility] 12:54:34 13:14:34 Only Anene, [facility] 350.1.13.10 ity of [place] 4.2.7.2.686 Phuc as Professio [phone] [address] Office [address] 2020-01-16 2020-01-16 Laboratory Lab, [facility] 1.2.840.114 [id number] 12:54:34 13:14:34 Only Fam Pob I Health 350.1.13.10 [place] 4.2.7.2.686 Professio [id number] [place] [address] [address] 2020-01-16 2020-01-16 Outpatient R [facility] [id number] Univers 13:00:00 13:00:00 ity of [facility] 2020-01-16 2020-01-16 Letter Doctor BETY 1.2.840.114 [id number] Univers 00:00:00 00:00:00 (Out) Unassigned, GONZALES 350.1.13.10 ity of [place] [facility] 4.2.7.2.686 Phuc as [id number] [address] 2020-01-16 2020-01-16 Letter Doctor ALBERT 1.2.840.114 [id number] 00:00:00 00:00:00 (Out) Unassigned, GONZALES 350.1.13.10 [place] [facility] 4.2.7.2.686 [id number] Results This patient has no known results."
[2023-04-15] MEDS ORDERED: ACETAMINOPHEN 500 MG TAB ONE (19:25)
[2023-04-15] MEDS ORDERED: NA CHLORIDE 0.9% 1,000 ML ONE (19:25)
[2023-04-15 19:32] LABS: Absolute Lymphocytes (CBC) 0.4 K/uL (0.7-4.9); Lymphocytes % 2.1 % (15.3-44.8); MCV 88.8 fL (80-100); MPV 7.1 fL (7.6-11.3); Platelets 286 thou/uL (152-406); RBC Red Blood Cell Count 4.05 M/uL (3.86-4.86)
--- NOTE | 2023-04-15 19:37 | RAD REPORT ---
EXAM DESCRIPTION: RAD - Chest Single View - 04/15/2023 7:28 pm CLINICAL HISTORY: CONGESTION Chest pain. COMPARISON: Chest Single View dated 05/14/2019; CHEST PA AND LAT 2 VIEW dated 07/13/2015 FINDINGS: Portable technique limits examination quality. The lungs are grossly clear. The heart is mildly enlarged in size. No displaced fractures.Cervical mendoza rdware plate. IMPRESSION: Mild cardiomegaly.
[2023-04-15 19:55] LABS: Albumin 2.9 g/dL (3.4-5.0); Bilirubin Total 0.5 mg/dL (0.2-1.0); Protein, Total 6.4 g/dL (6.4-8.2)
[2023-04-15 20:00] LABS: Potassium 2.4 mEq/L (3.5-5.1)
--- NOTE | 2023-04-15 20:23 | ER ---
Nurse's Notes [facility] Name: Isabelle Pike Age: 68 yrs Sex: Female : 1955 Arrival Date: 04/15/2023 Time: 18:58 Bed 8 Private MD: Diagnosis: COVID Presentation: 04/15 19:00 Chief complaint: EMS states: pt had recent travel out of country to [place]. pt kc6 returned with sob, headache, body aches, and nausea. 4mg of IV zofran given en route. Coronavirus screen: At this time, the client does not indicate any symptoms associated with coronavirus-19. Ebola Screen: No symptoms or risks identified at this time. Initial Sepsis Screen: Does the patient meet any 2 criteria? HR > 90 bpm. Does the patient have a suspected source of infection? No. Patient's initial sepsis screen is negative. Risk Assessment: Do you want to hurt yourself or someone else? Patient reports no desire to harm self or others. Onset of symptoms was April 15, 2023. 19:00 Method Of Arrival: [facility] 6 19:00 Acuity: FRANSISCO 3 kc6 Triage Assessment: 19:02 General: Appears in no apparent distress. comfortable, Behavior is calm, cooperative, kc6 appropriate for age, Reports fever for feeling ill for fatigue for. Neuro: Level of Consciousness is awake, alert, obeys commands, Oriented to person, place, time, situation, Appropriate for age Reports headache. Cardiovascular: Capillary refill < 3 seconds. Respiratory: Reports shortness of breath Airway is patent Trachea midline Respiratory effort is even, unlabored, Respiratory pattern is regular, symmetrical. GI: Reports nausea, Patient currently denies diarrhea, vomiting. : No signs and/or symptoms were reported regarding the genitourinary system. Derm: No signs and/or symptoms reported regarding the dermatologic system. Skin is intact, is healthy with good turgor, Skin is pink, warm \T\ dry. Musculoskeletal: No signs and/or symptoms reported regarding the musculoskeletal system. Circulation, motion, and sensation intact. Capillary refill < 3 seconds, Range of motion: intact in all extremities. Historical: - Allergies: 19:02 PENICILLINS; kc6 19:02 Doxycycline; kc6 - PMHx: 19:02 Hypertensive disorder; Hypothyroidism; kc6 - PSHx: 19:02 rotator cuff; kc6 - Immunization history:: Adult Immunizations up to date. - Social history:: Smoking status: Patient denies any tobacco usage or history of. Screenin:03 [facility] ED Fall Risk Assessment (Adult) History of falling in the last 3 months, kc6 including since admission No falls in past 3 months (0 pts) Confusion or Disorientation No (0 pts) Intoxicated or Sedated No (0 pts) Impaired Gait No (0 pts) Mobility Assist Device Used No (0 pt) Altered Elimination No (0 pt) Score/Fall Risk Level 0 - 2 = Low Risk. Abuse screen: Denies threats or abuse. Denies injuries from another. Nutritional screening: No deficits noted. Tuberculosis screening: No symptoms or risk factors identified. Assessment: 19:04 Reassessment: please see triage assessment. kc6 19:23 Reassessment: Patient appears in no apparent distress at this time. No changes from km8 previously documented assessment. Patient and/or family updated on plan of care and expected duration. Pain level reassessed. Patient is alert, oriented x 3, equal unlabored respirations, skin warm/dry/pink. Pain: Complains of pain in generalized Pain currently is 6 out of 10 on a pain scale. Quality of pain is described as aching. Neuro: Marquez Agitation-Sedation Scale (RASS): 0 - Alert and Calm Level of Consciousness is awake, alert, obeys commands, Oriented to person, place, time, situation. Cardiovascular: Capillary refill < 3 seconds Patient's skin is warm and dry. Respiratory: Airway is patent Respiratory effort is even, unlabored, Respiratory pattern is regular, symmetrical. Vital Signs: 19:00 BP 133 / 67; Pulse 109; Resp 18 S; Temp 99.7(O); Pulse Ox 97% on R/A; Weight 52.16 kg kc6 (R); Height 4 ft. 10 in. (R); 19:05 BP 140 / 74; Pulse 105; Resp 16; Pulse Ox 95% on R/A; km8 20:34 BP 103 / 58; Pulse 100; Resp 16; Pulse Ox 98% on R/A; km8 20:57 BP 103 / 58; Pulse 93; Resp 20; Temp 99.2(O); Pulse Ox 96% on R/A; kd3 19:00 Body Mass Index 24.03 (52.16 kg, 147.32 cm) kc6 ED Course: 18:59 Patient arrived in ED. kc6 18:59 Aldo Lea MD is Attending Physician. ec2 19:02 Triage completed. kc6 19:02 Arm band placed on. kc6 19:03 Maintain EMS IV. Dressing intact. Good blood return noted. Site clean \T\ dry. Gauge \T\ venkat 6 site: 20G LAC. Patient maintains SpO2 saturation greater than 95% on room air. 19:04 Patient has correct armband on for positive identification. Bed in low position. Call [facility] light in reach. Side rails up X2. Client placed on continuous cardiac and pulse oximetry monitoring. NIBP monitoring applied. 19:06 Maritza Sheridan, JOSE is Primary Nurse. km8 19:23 COVID-19 SARS RT PCR Sent. km8 19:23 Influenza Screen (a \T\ B) Sent. km8 19:23 CMP Sent. km8 19:23 CBC with Diff Sent. km8 19:30 CXR XRAY In Process Unspecified. EDMS 20:54 No provider procedures requiring assistance completed. km8 20:55 Provided Education on: d/c teaching. km8 Administered Medications: 19:23 Drug: NS 0.9% IV 1000 ml IV at 1 bolus Per protocol; 1000 mL bolus Route: IV; Rate: 1 km8 bolus; Site: left antecubital; 19:30 Follow up: Response: No adverse reaction; IV Status: Completed infusion; IV Intake: kd3 1000ml 20:12 Follow up: IV Status: Completed infusion; IV Intake: 1000ml km8 19:23 Drug: Acetaminophen PO 1000 mg PO once Route: PO; km8 20:12 Follow up: Response: No adverse reaction km8 20:57 Follow up: BP 103 / 58; Pulse 93 bpm; Resp 20 bpm; Temp 99.2 Oral; Pulse Ox 96% RA kd3 20:20 Drug: Potassium Chloride PO 40 mEq PO once Route: PO; km8 20:55 Follow up: Response: No adverse reaction km8 20:57 Follow up: Response: No adverse reaction kd3 Medication: 20:55 VIS not applicable for this client. km8 Intake: 19:30 IV: 1000ml; Total: 1000ml. kd3 20:12 IV: 1000ml; Total: 2000ml. km8 Outcome: 20:23 Discharge ordered by . ec2 20:59 Patient left the ED. kd3 Signatures: Dispatcher [employer] Jodee Kimble RN RN kd3 Carla Tamayo RN RN kc6 Aldo Lea MD MD ec2 Maritza Sheridan RN RN km8 Corrections: (The following items were deleted from the chart) 19:02 19:02 PSHx: rotator cuff; kc6 kc6 19:02 19:02 PSHx: rotator cuff; kc6 kc6
--- NOTE | 2023-04-15 20:23 | EDPHYS ---
Physician Documentation [facility] Name: Isabelle Pike Age: 68 yrs Sex: Female : 1955 Arrival Date: 04/15/2023 Time: 18:58 Bed 8 Private MD: ED Physician Aldo Lea HPI: 04/15 19:06 This 68 yrs old Female presents to ER via EMS with complaints of Flu Symptoms. ec2 19:06 Patient arrives today due to concern for URI signs and symptoms. Patient reports that ec2 she has been experiencing a couple of days of cough and cold symptoms along with body aches, subjective fevers and chills. Patient reports some nausea, EMS reports that they had given her Zofran to help and patient reports that this has helped her. Denies any issues with difficulty breathing.. Historical: - Allergies: 19:02 PENICILLINS; kc6 19:02 Doxycycline; kc6 - PMHx: 19:02 Hypertensive disorder; Hypothyroidism; kc6 - PSHx: 19:02 rotator cuff; kc6 - Immunization history:: Adult Immunizations up to date. - Social history:: Smoking status: Patient denies any tobacco usage or history of. ROS: 19:06 Constitutional: as per hpi ec2 Exam: 19:06 Constitutional: GEN: NAD Head: atraumatic Eyes: EOMI Ears: External ears are ec2 normal. CV: Tachycardia LUNGS: no respiratory distress, no wheezes, rales, or rhonchi ABD: non-distended SKIN: no evidence of rashes MSK: no evidence of trauma NEURO: moves all extremities equally Vital Signs: 19:00 BP 133 / 67; Pulse 109; Resp 18 S; Temp 99.7(O); Pulse Ox 97% on R/A; Weight 52.16 kg kc6 (R); Height 4 ft. 10 in. (R); 19:05 BP 140 / 74; Pulse 105; Resp 16; Pulse Ox 95% on R/A; km8 20:34 BP 103 / 58; Pulse 100; Resp 16; Pulse Ox 98% on R/A; km8 20:57 BP 103 / 58; Pulse 93; Resp 20; Temp 99.2(O); Pulse Ox 96% on R/A; kd3 19:00 Body Mass Index 24.03 (52.16 kg, 147.32 cm) kc6 MDM: 18:59 Patient medically screened. ec2 19:06 Data reviewed: vital signs. ED course: Patient arrives today due to concern for URI ec2 signs and symptoms. Examination remarkable for well-appearing nontoxic individual does have a slight tachycardia with a heart rate of 109 otherwise no acute respiratory distress and does not appear dehydrated. Will obtain lab work, give the patient crystalloid, obtain viral swabs. Currently considering viral infection, low suspicion for pneumonia, low suspicion for bacterial infection.. 19:42 ED course: Chest x-ray shows mild cardiomegaly, no focal infiltrate identified. X-ray ec2 independently reviewed and interpreted by me. . 20:02 ED course: CBC remarkable for leukocytosis to 18.2. Metabolic profile pertinent for ec2 hypokalemia with a potassium of 2.4, GFR of 84. Flu negative. Of note patient does meet SIRS criteria with tachycardia as well as a leukocytosis however have a low clinical index suspicion for an acute bacterial infection especially given the lack of focal consolidation on chest x-ray and lack of focal lung sounds on auscultation. . 20:05 ED course: Patient is positive for COVID. . ec2 20:22 ED course: On reassessment patient is well-appearing and in no acute distress, no ec2 respiratory distress and no evidence of hypoxia. Will discharge home with prescription for Zofran for nausea and have her follow-up with a primary care doctor. Return precautions given. . 11 19:02 Order name: CBC with Diff ec2 04/15 19:02 Order name: CMP; Complete Time: 20:01 ec2 04/15 19:02 Order name: Influenza Screen (a \T\ B); Complete Time: 20:01 ec2 04/15 19:02 Order name: COVID-19 SARS RT PCR; Complete Time: 20:05 ec2 04/15 20:48 Order name: CBC Smear Scan EDMS 04/15 19:02 Order name: CXR XRAY; Complete Time: 19:41 ec2 Administered Medications: 19:23 Drug: NS 0.9% IV 1000 ml IV at 1 bolus Per protocol; 1000 mL bolus Route: IV; Rate: 1 km8 bolus; Site: left antecubital; 19:30 Follow up: Response: No adverse reaction; IV Status: Completed infusion; IV Intake: kd3 1000ml 20:12 Follow up: IV Status: Completed infusion; IV Intake: 1000ml 19:23 Drug: Acetaminophen PO 1000 mg PO once Route: PO; 20:12 Follow up: Response: No adverse reaction 20:57 Follow up: BP 103 / 58; Pulse 93 bpm; Resp 20 bpm; Temp 99.2 Oral; Pulse Ox 96% RA kd3 20:20 Drug: Potassium Chloride PO 40 mEq PO once Route: PO; 20:55 Follow up: Response: No adverse reaction 20:57 Follow up: Response: No adverse reaction kd3 Disposition Summary: 04/15/23 20:23 Discharge Ordered Notes: Location: Home ec2 Condition: Stable ec2 Diagnosis - COVID ec2 Discharge Instructions: - Discharge Summary Sheet ec2 - COVID-19 ec2 Forms: - Medication Reconciliation Form ec2 - Thank You Letter ec2 - Antibiotic Education ec2 - Prescription Opioid Use ec2 - Patient Portal Instructions ec2 - Leadership Thank You Letter ec2 Prescriptions: - Tessalon Perles 100 mg Oral Capsule - take 1 capsule ORAL route every 8 hours As needed; 15 capsule; Refills: 0, kb Product Selection Permitted - Zofran 4 mg Oral Tablet - take 1 tablet ORAL route every 12 hours As needed; 20 tablet; Refills: 0, ec2 Product Selection Permitted Signatures: Dispatcher [employer] Carla Figueroa RN RN kc6 Aldo Lea MD MD ec2 Maritza Sheridan RN RN km8 Jodee Garsia RN kd3 Corrections: (The following items were deleted from the chart) 19: 19:02 PSHx: rotator cuff; kc6 kc6 19:02 19:02 PSHx: rotator cuff; kc6 kc6
[2023-04-15] MEDS ORDERED: POTASSIUM CL SA 10 MEQ TAB PO ONE (20:31)
[2023-04-15 20:47] LABS: Blood Morphology Comment NOT SEEN (NOT SEEN); Platelet Estimate ADEQ; White Blood Cell Scan OK (OK)
[2023-04-15 21:25] VITALS: BP 103/58
[2023-04-15 21:27] VITALS: TEMP 99.2; O2SAT 96
== END 2023-04-15 20:59 | disposition home or self-care (01) ==
LOC: ER 18:58
DX: U07.1 COVID-19 (principal); I10 Essential (primary) hypertension; Z88.0 Allergy status to penicillin; Z88.1 Allergy status to other antibiotic agents
CPT/HCPCS: 85025; 36415; 80053; 87635; 87804 ×2; 71045; 99285; J7030